=== PATIENT | female | born 1965 | race Caucasian/White ===

== ENCOUNTER 2021-08-19 07:55 | Day surgery (SDC) | payer MEDICARE, OTHER ==
[2021-08-19] MEDS ORDERED: Metoclopramide 10 MG/2 ML SDV IVPUSH PRN (07:59)
[2021-08-19] MEDS ORDERED: Naloxone 0.4 MG/ML SDV IVPUSH PRN (07:59)
[2021-08-19] MEDS ORDERED: HYDROmorphone 1 MG/ML Syringe IVPUSH PRN (07:59)
[2021-08-19] MEDS ORDERED: Ondansetron 4 MG/2 ML SDV IVPUSH PRN ×2 (07:59→10:59)
[2021-08-19] MEDS ORDERED: fentaNYL 100 MCG/2 ML SDV IVPUSH PRN (07:59)
[2021-08-19] MEDS ORDERED: Albuterol 0.083% 2.5 MG/3 ML Neb Soln NEB PRN (07:59)
[2021-08-19] MEDS ORDERED: Lactated Ringers 1,000 ML IV SCH (09:00)
[2021-08-19] MEDS ORDERED: Ondansetron 4 MG/2 ML SDV ONE (09:41)
[2021-08-19] MEDS ORDERED: Dexamethasone 4 MG/ML 5 ML MDV ONE (09:41)
[2021-08-19] MEDS ORDERED: Lidocaine 2% 5 ML SDV ONE (09:41)
[2021-08-19] MEDS ORDERED: Propofol 200 MG/20 ML SDV ONE (09:41)
[2021-08-19] MEDS ORDERED: Midazolam 1 MG/ML 2 ML SDV ONE (09:42)
[2021-08-19] MEDS ORDERED: fentaNYL 100 MCG/2 ML SDV ONE (09:42)
[2021-08-19] MEDS ORDERED: Promethazine 25 MG/ML SDV ONE (09:50)
[2021-08-19] MEDS ORDERED: propofoL 100 ML ONE (10:06)
[2021-08-19] MEDS ORDERED: Promethazine 25 MG/ML SDV IM PRN (10:59)
[2021-08-19] MEDS ORDERED: Acetaminophen 325 MG Tab PO PRN (10:59)
[2021-08-19] MEDS ORDERED: Ketorolac 30 MG/ML SDV IVPUSH ONE (10:59)
[2021-08-19] MEDS ORDERED: Ketorolac 30 MG/ML SDV IVPUSH SCH (11:00)
[2021-08-19] MEDS: Ketorolac 30 MG/ML SDV IVPUSH SCH (20:05)
[2021-08-19] MEDS: GABAPENTIN 600 MG PO SCH (20:10)
[2021-08-19] MEDS ORDERED: Gabapentin 300 MG Cap PO SCH (21:00)
[2021-08-19] MEDS ORDERED: Levothyroxine 50 MCG Tab PO SCH (21:00)
[2021-08-19] MEDS ORDERED: POTASSIUM GLUCONATE 99 MG PO SCH (21:00)
[2021-08-20] MEDS: Ketorolac 30 MG/ML SDV IVPUSH SCH ×2 (02:30→08:52)
[2021-08-20 04:10] VITALS: PULSE 71
[2021-08-20] MEDS ORDERED: Levothyroxine 50 MCG Tab PO SCH (07:30)
[2021-08-20 08:01] VITALS: BP 120/79
[2021-08-20] MEDS: GABAPENTIN 600 MG PO SCH (08:53)
[2021-08-20] MEDS ORDERED: DULoxetine 60 MG Cap PO SCH (09:00)
[2021-08-20] MEDS ORDERED: PHYTONADIONE 1 MG/0.5 ML PO SCH (09:00)
[2021-08-20] MEDS ORDERED: ESTRADIOL 2 MG PO SCH (09:00)
== END 2021-08-20 09:48 | disposition home or self-care (01) ==
LOC: MW.SDS 07:55 → MW.OB 13:19 → MW.SDS 08-20 09:48
PROVIDERS: ATTEND Obstetrics & Gynecology
DX: N81.11 Cystocele, midline (principal); N81.6 Rectocele; M79.7 Fibromyalgia; F32.A Depression, unspecified; E03.9 Hypothyroidism, unspecified; M06.9 Rheumatoid arthritis, unspecified; E66.9 Obesity, unspecified; Z88.5 Allergy status to narcotic agent; Z91.09 Other allergy status, other than to drugs and biological substances; Z68.32 Body mass index [BMI] 32.0-32.9, adult; Z98.890 Other specified postprocedural states; Z79.890 Hormone replacement therapy; Z79.1 Long term (current) use of non-steroidal anti-inflammatories (NSAID); Z79.899 Other long term (current) drug therapy; Z01.812 Encounter for preprocedural laboratory examination; Z20.822 Contact with and (suspected) exposure to COVID-19
CPT/HCPCS: 57260; 88302; A9270; J0131; J0690; J1100; J1885; J2250; J2704; J3010; J7120; U0002; 00942; J2405

== ENCOUNTER 2021-12-25 08:03 | Day surgery (SDC) | payer MEDICARE, OTHER ==
[~2021-12-25 08:03] MED LIST: Propofol 200 MG/20 ML SDV ONE; fentaNYL 100 MCG/2 ML SDV ONE
[2021-12-25] MEDS ORDERED: Lactated Ringers 1,000 ML IV SCH (08:30)
[2021-12-25] MEDS ORDERED: Lidocaine 2% 5 ML SDV ONE (09:54)
[2021-12-25 10:59] VITALS: BP 115/73; PULSE 66
== END 2021-12-25 11:15 | disposition home or self-care (01) ==
LOC: MW.SDS 08:03
PROVIDERS: ATTEND Surgery
DX: D12.2 Benign neoplasm of ascending colon (principal); D12.0 Benign neoplasm of cecum; K29.80 Duodenitis without bleeding; K31.7 Polyp of stomach and duodenum; F32.A Depression, unspecified; F41.9 Anxiety disorder, unspecified; J30.9 Allergic rhinitis, unspecified; E03.9 Hypothyroidism, unspecified; E66.9 Obesity, unspecified; K64.4 Residual hemorrhoidal skin tags; K64.8 Other hemorrhoids; K58.9 Irritable bowel syndrome, unspecified; M06.9 Rheumatoid arthritis, unspecified; Z88.1 Allergy status to other antibiotic agents; Z88.5 Allergy status to narcotic agent; Z79.51 Long term (current) use of inhaled steroids; Z79.890 Hormone replacement therapy; Z79.899 Other long term (current) drug therapy; Z98.890 Other specified postprocedural states; Z68.31 Body mass index [BMI] 31.0-31.9, adult; Z86.16 Personal history of COVID-19; Z90.49 Acquired absence of other specified parts of digestive tract
CPT/HCPCS: 43239; 45380; J2704; J3010; J7120